=== PATIENT | male | born 1970 ===

== ENCOUNTER 2017-02-13 09:35 | Emergency (ER) | payer SELFPAY ==
[2017-02-13] MEDS ORDERED: Naproxen 550 mg Tab PO STA (09:48)
--- NOTE | 2017-02-13 09:50 | C.PDOC ---
History Of Present Illness 47 yo male, presents s/p fall. as per pt, slipped in wet bathroom 2 hours ago. c /o of low back, left shoulder, and left hip pain. no other injury or complaint. no head injury loc. Time Seen by Provider: 02/13/17 09:40 Past Medical History Reviewed: Historical Data, Nursing Documentation, Vital Signs Vital Signs: Last Vital Signs Temp 97.4 F L 02/13/17 09:49 Pulse 55 L 02/13/17 09:49 Resp 18 02/13/17 09:49 BP 133/80 02/13/17 09:49 Pulse Ox 96 02/13/17 09:49 Family History: States: Unknown Family Hx Review Of Systems Except As Marked, All Systems Reviewed And Found Negative. Musculoskeletal: Positive for: Back Pain, Other (shoulder, hip, left, lower back) Physical Exam - Physical Exam Appears: Well, No Acute Distress Skin: Normal Color, Warm, Dry Eye(s): bilateral: Normal Inspection, PERRL, EOMI Nose: Normal Throat: Normal Neck: Normal Cardiovascular: Rhythm Regular Respiratory: Normal Breath Sounds Gastrointestinal/Abdominal: Normal Exam Back: Normal Inspection Extremity: Normal ROM Extremity: Left: Other ((+)left shoulder mild swelling, ttp no defomity (+) left hip mildswelling, ttp, no deformity, skin intact, ) Additional Physical Exam Comments: (+)2+ pulses all extremitites Medical Decision Making Medical Decision Making: mechanical fall r/o fx 1015: imaging neg as read by me. stable for d/c Disposition - Disposition Referrals: Molly Mcbride MD [Staff Provider] - Disposition: HOME/ ROUTINE Disposition Time: 10:16 Condition: STABLE Additional Instructions: please follow up with your doctor/specialist. return to er with worsening symptoms or concerns. Prescriptions: Naproxen 500 mg PO BID PRN #14 tab PRN Reason: Pain, Mild (1-3) Instructions: Fall Prevention (ED), Hip Contusion (ED), Acute Low Back Pain (ED ), Shoulder Sprain (ED) Print Language: SAO TOMEAN - Clinical Impression Clinical Impression: Fall, Shoulder strain, Low back pain, Hip injury
[2017-02-13 09:51] VITALS: BP 133/80; PULSE 55; RESP 18; TEMP 97.4; O2SAT 96
[2017-02-13] MEDS ORDERED: Naproxen 550 mg Tab PO ONE (09:55)
--- NOTE | 2017-02-13 15:47 | RAD ---
PROCEDURE: Radiographs of the Left Shoulder HISTORY: fall COMPARISON: No prior. FINDINGS: BONES: No fracture. Small calcific densities adjacent to greater tuberosity consistent with calcific tendinitis. JOINTS: Normal. Glenohumeral and acromioclavicular joints preserved. No osteoarthritis. SOFT TISSUES: Normal. OTHER FINDINGS: None. IMPRESSION: No acute fracture. Calcific tendinitis.
--- NOTE | 2017-02-13 15:50 | RAD ---
PROCEDURE: Left Hip X-ray Radiographs. HISTORY: fall COMPARISON: None. FINDINGS: BONES: Normal. No fracture. JOINTS: Normal. SOFT TISSUES: Normal. OTHER FINDINGS: None. IMPRESSION: Normal left hip radiographs.
--- NOTE | 2017-02-13 15:51 | RAD ---
PROCEDURE: Radiographs of the Lumbar Spine. HISTORY: fall COMPARISON: No prior. FINDINGS: BONES: Normal alignment. No listhesis. No fracture. DISC SPACES: Unremarkable. OTHER FINDINGS: None. IMPRESSION: Unremarkable radiographs of the lumbar spine.
== END 2017-02-13 10:25 | disposition home or self-care (01) ==
LOC: C.ER 09:35
DX: S46.912A Strain of unspecified muscle, fascia and tendon at shoulder and upper arm level, left arm, initial encounter (principal); S79.912A Unspecified injury of left hip, initial encounter; M54.5 Low back pain; W01.0XXA Fall on same level from slipping, tripping and stumbling without subsequent striking against object, initial encounter; Y93.F9 Activity, other caregiving; Y92.002 Bathroom of unspecified non-institutional (private) residence as the place of occurrence of the external cause

== ENCOUNTER 2019-01-13 11:34 | Emergency (ER) | payer OTHER ==
[2019-01-13 11:45] VITALS: BP 128/86; RESP 20; O2SAT 95
--- NOTE | 2019-01-13 11:49 | C.PDOC ---
History Of Present Illness This is a 48 year old male with who presents with x 4 days. Time Seen by Provider: 01/13/19 11:47 Chief Complaint (Nursing): Flu-like Symptoms Past Medical History Vital Signs: Last Vital Signs Temp 98.8 F 01/13/19 11:43 Pulse 92 H 01/13/19 11:43 Resp 20 01/13/19 11:43 BP 128/86 01/13/19 11:43 Pulse Ox 95 01/13/19 11:43 Family History: States: Unknown Family Hx - Social History Hx Alcohol Use: Yes Hx Substance Use: No - Immunization History Hx Tetanus Toxoid Vaccination: No Hx Influenza Vaccination: No Hx Pneumococcal Vaccination: No ED Course And Treatment O2 Sat by Pulse Oximetry: 95 Disposition - Disposition
[2019-01-13 12:24] LABS: BASO % 0.2 % (0.0-2.0); EOS % 0.1 % (0.0-4.0); HEMOGLOBIN 14.2 g/dL (12.0-18.0); LYMPH # 1.1 K/uL (1.0-4.3); LYMPH % 21.4 % (20.0-40.0); MEAN CELL VOLUME 87.7 fL (80.0-94.0); MEAN CORPUSCULAR HEMOGLOBIN 29.5 pg (27.0-31.0); MEAN CORPUSCULAR HGB CONC 33.7 g/dL (33.0-37.0); MEAN PLATELET VOLUME 7.2 fL (7.2-11.7); MONO # 0.4 K/uL (0.0-0.8); MONO % 8.5 % (0.0-10.0); NEUT # 3.5 K/uL (1.8-7.0); NEUT % 69.8 % (50.0-75.0); NRBC % 0.1 % (0.0-2.0); RBC 4.79 Mil/uL (4.40-5.90); RED CELL DISTRIBUTION WIDTH 13.4 % (11.5-14.5)
[2019-01-13 12:36] LABS: ALB/GLOB RATIO 1.4 (1.0-2.1); ALBUMIN 4.3 g/dL (3.5-5.0); ALT/SGPT 63 U/L (21-72); AST/SGOT 46 U/L (17-59); BLOOD UREA NITROGEN 8 mg/dL (9-20); CALCIUM 8.4 mg/dl (8.6-10.4); GFR NON-AFRICAN AMERICAN > 60
[2019-01-13 12:56] VITALS: PULSE 94
[2019-01-13] MEDS ORDERED: Albuterol 0.083% Inhal Sol (2.5 mg/3 mL) UD INH STA (12:56)
--- NOTE | 2019-01-13 12:56 | C.PDOC ---
History Of Present Illness 48 year old male presents to ED with complaint of sore throat, subjective fever, and chills for the past 4 days. Patient has a history of smoking. He is also complaining of intermittent palpitations and chest pain. Patient denies nausea, vomiting, and abdominal pain. SORE THROAT, SUBJ FEVER, CHILLS X 4 DAYS. +SMOKER. +INTERMIT PALP, CP. EXAM NONTOXIC HEENT NEG LUNGS CTA B/L NO W/R/R CV RRR REMAINDE RNEG HPI: Influenza Time Seen by Provider: 01/13/19 11:47 Chief Complaint: Flu-like Symptoms History Per: Patient Exam Limitations: no limitations Onset/Duration Of Symptoms: Days (4) Symptoms include: fever, sore throat, chest pain (with intermittant palpitati ons), other (chills). denies: vomiting Past Medical History Reviewed: Historical Data, Nursing Documentation, Vital Signs Vital Signs: Last Vital Signs Temp 98.8 F 01/13/19 11:43 Pulse 92 H 01/13/19 11:43 Resp 20 01/13/19 11:43 BP 128/86 01/13/19 11:43 Pulse Ox 95 01/13/19 11:43 - Medical History PMH: No Chronic Diseases Surgical History: No Surg Hx Family History: States: Unknown Family Hx - Social History Hx Alcohol Use: Yes Hx Substance Use: No - Immunization History Hx Tetanus Toxoid Vaccination: No Hx Influenza Vaccination: No Hx Pneumococcal Vaccination: No Review Of Systems Constitutional: Positive for: Fever, Chills. Negative for: Weakness ENT: Positive for: Throat Pain Cardiovascular: Positive for: Chest Pain, Palpitations (intermittent) Respiratory: Negative for: Cough, Shortness of Breath Gastrointestinal: Negative for: Nausea, Vomiting, Abdominal Pain Genitourinary: Negative for: Dysuria Musculoskeletal: Negative for: Back Pain Neurological: Negative for: Weakness, Numbness, Dizziness Physical Exam - Physical Exam Appears: Well, Non-toxic, No Acute Distress Skin: Normal Color, Warm, Dry Head: Atraumatic, Normacephalic Eye(s): bilateral: Normal Inspection, PERRL, EOMI Ear(s): Bilateral: Normal Nose: Normal, No Discharge, No Deformity Oral Mucosa: Moist Throat: Normal, No Erythema, No Exudate Neck: Normal ROM, Supple Chest: Symmetrical, No Deformity Cardiovascular: Rhythm Regular, No Murmur Respiratory: No Accessory Muscle Use, No Rales, No Rhonchi, No Wheezing Gastrointestinal/Abdominal: Soft, No Tenderness Extremity: Capillary Refill (<2 seconds) Extremity: Bilateral: Atraumatic, Normal Color And Temperature Pulses: Left Radial: Normal, Right Radial: Normal Neurological/Psych: Oriented x3, Normal Speech, Normal Cognition Medical Decision Making Medical Decision Making: Impression: 48 y/o with fever, chills, and sore throat Plan: EKG and CXR ordered for patient. Labs ordered with rapid flua/b for patient. Patient given Albuterol INH, Tamiflu PO, Toradol IVP, and Tylenol PO. CXR: Impression: Poor inspiration with low lung volumes, crowded bronchovascular markings and minor bibasilar atelectasis left greater than right. More confluent opacity in the left lung base could concomitant infiltrate-pneumonia. - Laboratory Results Result Diagrams: 01/13/19 12:18 01/13/19 12:18 Lab Results: Troponin I < 0.0120 ng/mL (0.00-0.120) 01/13/19 12:18 Total Bilirubin 0.3 mg/dL (0.2-1.3) 01/13/19 12:18 AST 46 U/L (17-59) 01/13/19 12:18 ALT 63 U/L (21-72) 01/13/19 12:18 Alkaline Phosphatase 85 U/L (38-126) 01/13/19 12:18 Total Protein 7.5 g/dL (6.3-8.3) 01/13/19 12:18 Albumin 4.3 g/dL (3.5-5.0) 01/13/19 12:18 Globulin 3.2 gm/dL (2.2-3.9) 01/13/19 12:18 Albumin/Globulin Ratio 1.4 (1.0-2.1) 01/13/19 12:18 - ECG ECG: Positive for: Interpreted By Me ECG Rhythm: Positive for: Normal QRS, Normal ST Segment, Sinus Rhythm Rate: 94 O2 Sat by Pulse Oximetry: 95 Pulse Ox Interpretation: Normal - Other Rad CXR X-Ray: Interpreted by Me, Viewed By Me Disposition Counseled Patient/Family Regarding: Studies Performed, Diagnosis, Need For Followup, Rx Given - Disposition Referrals: your,pmd [Other] Clinical Geneticist Service [Outside] [facility] [Outside] Disposition: HOME/ ROUTINE Disposition Time: 13:42 Condition: IMPROVED Prescriptions: Azithromycin 250 mg PO DAILY #6 tab Benzonatate [Tessalon Perles] 200 mg PO TID PRN #15 sgl PRN Reason: Cough Ibuprofen [Motrin] 600 mg PO Q6 #30 tab Oseltamivir Cap [Tamiflu] 75 mg PO BID #10 cap Instructions: Acute Bronchitis, Adult (DC), Flu, Adult (DC) Forms: [employer] (Slovenian), Work Excuse Print Language: INDONESIAN - Clinical Impression Clinical Impression: Influenza-like illness, Bronchitis - Scribe Statement The provider has reviewed the documentation as recorded by the Scribe (Juliette Ellison) All medical record entries made by the Scribe were at my direction and personally dictated by me. I have reviewed the chart and agree that the record accurately reflects my personal performance of the history, physical exam, medical decision making, and the department course for this patient. I have also personally directed, reviewed, and agree with the discharge instructions and disposition.
[2019-01-13] MEDS ORDERED: Albuterol 0.083% Inhal Sol (2.5 mg/3 mL) UD ONE (13:12)
--- NOTE | 2019-01-13 13:40 | RAD ---
Date of service: 01/13/2019 HISTORY: Cough COMPARISON: No prior. TECHNIQUE: Chest PA and lateral FINDINGS: LUNGS: Poor inspiration with low lung volumes, crowded bronchovascular markings and minor bibasilar atelectasis left greater than right. More confluent opacity in the left lung base could concomitant infiltrate-pneumonia. PLEURA: No significant pleural effusion identified. No pneumothorax apparent. CARDIOVASCULAR: Cardiomegaly.. No significant aortic atherosclerotic calcification present. OSSEOUS STRUCTURES: No significant abnormalities. VISUALIZED UPPER ABDOMEN: Normal. OTHER FINDINGS: None. IMPRESSION: Poor inspiration with low lung volumes, crowded bronchovascular markings and minor bibasilar atelectasis left greater than right. More confluent opacity in the left lung base could concomitant infiltrate-pneumonia.
[2019-01-13 14:05] VITALS: TEMP 98.5
--- NOTE | 2019-01-14 20:02 | CARD ---
APPROVED REPORT Date of service: 01/13/2019 EKG Measurement Heart [id number] <Conclusion> Normal sinus rhythm Incomplete right bundle branch block Borderline ECG
== END 2019-01-13 14:05 | disposition home or self-care (01) ==
LOC: C.ER 11:34
DX: J11.1 Influenza due to unidentified influenza virus with other respiratory manifestations (principal); J40 Bronchitis, not specified as acute or chronic; F17.210 Nicotine dependence, cigarettes, uncomplicated
CPT/HCPCS: 36415; 71046; 80053; 84484; 85025; 87804; 93005; 96374; 99285; J1885